=== PATIENT | male | born 1960 | race Caucasian/White ===

== ENCOUNTER 2021-11-18 12:56 | Day surgery (SDC) | payer BC ==
[~2021-11-18] VITALS: Ht 180.3 cm; Wt 86.3 kg
[~2021-11-18 12:56] MED LIST: ALEVE220 M1 PO; ASPIRIN EC81 MG PO; NORCO 7.5-3251 EACH PO; ULTRAM50 MG PO; ZOCOR40 MG PO
--- NOTE | 2021-11-18 14:40 | NUR ---
11/18/21 1440 Marsha Hunter 1436 PATIENT ARRIVES AWAKE BUT DROWSY. RESP EVEN AND UNLABORED, NC AT 2 LITERS. OXYGEN OFF ON ARRIVAL TO PACU.
--- NOTE | 2021-11-20 13:12 | OR ---
[facility] [address] [place], [place] [address] Signed DATE OF OPERATION: 11/18/2021 SURGEON: Stalin Molina MD PREOPERATIVE DIAGNOSIS: Colon screening. POSTOPERATIVE DIAGNOSIS: Diminutive polyp of rectosigmoid excised. PROCEDURE: Total colonoscopy to cecum with cold morcellation polypectomy x1. ANESTHESIA: Intravenous sedation, fentanyl 150 mcg and Versed 10 mg. INDICATION: This is a healthy 61-year-old white man, who is a patient of Dr. Castro Miller and is here for consideration of screening colonoscopy. He has no symptoms of bleeding, diarrhea, or constipation. He is admitted to undergo screening colonoscopy. He understands the risks of bleeding, infection, and perforation. FINDINGS: The prep was excellent. Complete colonoscopy was undertaken to the cecum without problem. There was a diminutive polyp of the rectosigmoid, which was excised. The remaining colon was normal. DESCRIPTION OF PROCEDURE: The patient was brought to the endoscopy suite and placed in lateral decubitus position, given intravenous sedation to the point of slurred speech and nystagmus. Full cardiopulmonary monitoring was maintained. Digital rectal examination was normal. The Olympus video colonoscope was passed in the rectum and manipulated throughout the colon, ultimately intubating the cecum itself. The irrigation was undertaken as needed. The scope was then carefully withdrawn and examination throughout showed no sign of abnormality into the rectosigmoid, where a diminutive polyp was noted, most likely hyperplastic. This was excised. The scope was further withdrawn and retroflexed view undertaken was normal. Scope was removed. The patient was taken to the recovery room in good condition. CONCLUDING DIAGNOSIS: Electronically Signed By: STALIN MOLINA MD 11/20/21 1312 PATIENT NAME: OSVALDO HYMAN OPERATIVE REPORT DATE OF : 58 REPORT #: [id number] PHYSICIAN: STALIN MOLINA MD PCP: CASTRO MILLER MD REPORT IS CONFIDENTIAL AND NOT TO BE RELEASED WITHOUT AUTHORIZATION [facility] [address] [place], [place] [address] Signed Diminutive polyp of rectosigmoid. PLAN: Recommend repeat colonoscopy in 10 years, sooner if clinically indicated. He will return to the ongoing care of Dr. Castro Miller, [place], [place]. MD JOSEE Duque/MODL /[id number] Copies: ~ Electronically Signed By: STALIN MOLINA MD 11/20/21 1312 PATIENT NAME: OSVALDO HYMAN Sonja OPERATIVE REPORT DATE OF : 58 REPORT #: [id number] PHYSICIAN: STALIN MOLINA MD PCP: CASTRO MILLER MD REPORT IS CONFIDENTIAL AND NOT TO BE RELEASED WITHOUT AUTHORIZATION
--- NOTE | 2021-11-20 15:57 | PATH ---
[facility] [address] [facility] [place] [place] [address] Signed SPECIMEN(S): A RECTAL POLYP SPECIMEN SOURCE: A. RECTAL POLYP CLINICAL HISTORY: Screening colonoscopy FINAL PATHOLOGIC DIAGNOSIS: Rectum, polypectomy: - Colonic mucosa with a prominent lymphoid aggregate. BRP:[facility]:C2NR MICROSCOPIC EXAMINATION: Histologic sections of all submitted blocks are examined by light microscopy. These findings, together with the gross examination, support the pathologic diagnosis. GROSS DESCRIPTION: The specimen, labeled "RB, small rectal polyp," is received in formalin and consists of three stapleton soft tissue fragments that measure 0.2 cm in greatest dimension. The specimen is entirely submitted in cassette (A1). AI (under the direct supervision of a pathologist) The Gross Description was prepared using a voice recognition system. The report was reviewed for accuracy; however, sound-alike word errors, addition and/or deletions may occur. If there is any question about this report, please contact Client Services. PERFORMING LABORATORY: The technical component was performed by [facility], [address] [place] [id number] (CLIA# [id number]). The professional interpretation was performed by [facility], [facility], [address] [place] [address] (CLIA#: [id number]). Diagnostician: Wilmer Peter MD Pathologist Electronically Signed 11/20/2021 Copies: PATIENT NAME: YENNIOSVALDO Sonja PATHOLOGY DATE OF : 58 REPORT #: [id number] PHYSICIAN: [facility] PCP: WENDY BAUTISTA MD REPORT IS CONFIDENTIAL AND NOT TO BE RELEASED WITHOUT AUTHORIZATION [address] [place], [place] [address] Signed ~ PATIENT NAME: OSVALDO HYMAN Sonja PATHOLOGY DATE OF : 58 REPORT #: [id number] PHYSICIAN: [facility] PCP: WENDY BAUTISTA MD REPORT IS CONFIDENTIAL AND NOT TO BE RELEASED WITHOUT AUTHORIZATION
== END 2021-11-18 15:14 | disposition home or self-care (01) ==
LOC: DS 12:56 → OPS 12:56
PROVIDERS: ATTEND Surgery
PROC: 0DBN8ZX Excision of Sigmoid Colon, Via Natural or Artificial Opening Endoscopic, Diagnostic (ICD-10-PCS; principal; 2021-11-18 14:00)
DX: Z12.11 Encounter for screening for malignant neoplasm of colon (principal); K62.1 Rectal polyp
CPT/HCPCS: 99153; G0500; J2250; J3010